=== PATIENT | female | born 2000 | race Hispanic/Latino ===

== ENCOUNTER 2022-01-28 10:11 | Emergency (ER) | payer SELFPAY ==
[~2022-01-28] VITALS: Ht 167.6 cm; Wt 90.0 kg
[2022-01-28 10:26] VITALS: BP 123/77
[2022-01-28 10:30] VITALS: BP 115/74
[2022-01-28 11:01] LABS: HEMATOCRIT 38.3 % (37.0-47.0); HEMOGLOBIN 12.2 g/dl (12.0-16.0); IMMATURE GRANULOCYTES 0.1 % (0.0-5.0); MEAN CELL VOLUME 81.8 fL CALC (80.0-100.0); MEAN CORPUSCULAR HGB 26.1 pG CALC (26.0-32.0); MEAN CORPUSCULAR HGB CONC 31.9 g/dL CAL (32.0-36.0); NEUT# 7.04 thou/uL (2.00-7.15); RED BLOOD COUNT 4.68 mill/uL (4.20-5.60); RED CELL DISTRI WIDTH 14.3 % (11.5-15.5)
[2022-01-28 11:02] LABS: URINE BILIRUBIN - DIPSTICK NEGATIVE (NEGATIVE); URINE BLOOD DIPSTICK NEGATIVE (NEGATIVE); URINE KETONE TRACE mg/dL (NEGATIVE); URINE PROTEIN - DIPSTICK TRACE mg/dL (NEG-TRACE); URINE SPECIFIC GRAVITY 1.025; URINE UROBILINOGEN - DIPSTICK 0.2 E.U./dL (0.2)
[2022-01-28 11:04] LABS: URINE LEUK ESTERASE SMALL (NEGATIVE); URINE NITRITE - DIPSTICK NEGATIVE (Negative)
[2022-01-28 11:05] LABS: URINE COLOR DK. YELLOW; URINE GLUCOSE - DIPSTICK NEGATIVE (NEGATIVE)
[2022-01-28 11:06] LABS: URINE EPITHELIAL CELLS FEW EPI/hpf (0-FEW)
[2022-01-28 11:15] LABS: ALBUMIN 4.1 g/dL (3.2-5.0); ALKALINE PHOSPHATASE 92 u/l (38-126); ANION GAP 10 (6-22 (CALC)); BILIRUBIN, TOTAL 0.6 mg/dL (0.0-1.4); BUN 9 mg/dL (7-17); BUN/CREATININE RATIO 16 (12-20 (CALC)); CARBON DIOXIDE 25 mmol/l (22-30); CHLORIDE 105 mmol/l (95-108); CREATININE 0.6 mg/dL (0.5-1.0); GFR FOR AFR.AMER. > 60 ML/MIN (>=60 (CALC)); GFR OTHER RACES > 60 ML/MIN (>=60 (CALC)); LIPASE 42 u/l (23-300); POTASSIUM 3.9 mmol/l (3.5-5.1); SGOT/AST 21 u/l (14-36); SODIUM 137 mmol/l (137-146); TOTAL PROTEIN 7.8 g/dL (6.3-8.2)
[2022-01-28] MEDS ORDERED: CEPHALEXIN500 MG PO (12:20)
[2022-01-28] MEDS ORDERED: ZOFRAN4 MG/TAB PO (12:20)
[2022-01-28 12:47] VITALS: BP 104/71
[2022-01-28 13:00] VITALS: BP 108/61
[2022-01-28 13:15] VITALS: BP 101/63
[2022-01-28 13:30] VITALS: BP 101/52
== END 2022-01-28 12:32 | disposition home or self-care (01) | DRG 832 ==
LOC: ED 10:11
PROVIDERS: Family Medicine
DX: O23.41 Unspecified infection of urinary tract in pregnancy, first trimester (principal); N39.0 Urinary tract infection, site not specified; Z3A.09 9 weeks gestation of pregnancy

== ENCOUNTER 2022-02-10 10:43 | Emergency (ER) | payer SELFPAY ==
[2022-02-10] VITALS (9 sets, daily range): BP systolic 76–117; BP diastolic 42–71
[~2022-02-10] VITALS: Ht 167.6 cm; Wt 113.6 kg
[~2022-02-10 10:43] MED LIST: CEPHALEXIN500 MG PO; ZOFRAN4 MG/TAB PO
[2022-02-10 11:34] LABS: URINE BILIRUBIN - DIPSTICK NEGATIVE (NEGATIVE); URINE BLOOD DIPSTICK NEGATIVE (NEGATIVE); URINE COLOR YELLOW; URINE GLUCOSE - DIPSTICK NEGATIVE (NEGATIVE); URINE KETONE TRACE mg/dL (NEGATIVE); URINE LEUK ESTERASE NEGATIVE (NEGATIVE); URINE PH 6.5 (4.5-8.0); URINE PROTEIN - DIPSTICK NEGATIVE (NEG-TRACE); URINE SPECIFIC GRAVITY 1.025
[2022-02-10 11:34] LABS: HEMATOCRIT 36.2 % (37.0-47.0); HEMOGLOBIN 11.5 g/dl (12.0-16.0); IMMATURE GRANULOCYTES 0.1 % (0.0-5.0); MEAN CELL VOLUME 82.8 fL CALC (80.0-100.0); MEAN CORPUSCULAR HGB 26.3 pG CALC (26.0-32.0); MEAN CORPUSCULAR HGB CONC 31.8 g/dL CAL (32.0-36.0); NEUT# 5.77 thou/uL (2.00-7.15); RED BLOOD COUNT 4.37 mill/uL (4.20-5.60); RED CELL DISTRI WIDTH 14.7 % (11.5-15.5)
[2022-02-10 11:38] LABS: URINE NITRITE - DIPSTICK NEGATIVE (Negative)
[2022-02-10 12:27] LABS: ALBUMIN 3.8 g/dL (3.2-5.0); ALKALINE PHOSPHATASE 82 u/l (38-126); ANION GAP 10 (6-22 (CALC)); BUN 9 mg/dL (7-17); BUN/CREATININE RATIO 13 (12-20 (CALC)); CARBON DIOXIDE 23 mmol/l (22-30); CHLORIDE 107 mmol/l (95-108); CREATININE 0.7 mg/dL (0.5-1.0); GFR FOR AFR.AMER. > 60 ML/MIN (>=60 (CALC)); GFR OTHER RACES > 60 ML/MIN (>=60 (CALC)); POTASSIUM 3.8 mmol/l (3.5-5.1); SGOT/AST 20 u/l (14-36); SODIUM 136 mmol/l (137-146); TOTAL PROTEIN 7.1 g/dL (6.3-8.2)
[2022-02-10 12:50] LABS: BILIRUBIN, TOTAL 0.3 mg/dL (0.0-1.4)
[2022-02-10 13:09] LABS: BETA-HCG, QUANT(RESULT NUMBER) 62727 mIU/mL
[2022-02-10] MEDS ORDERED: PROMETHAZINE HY25 M1 PO (13:33)
== END 2022-02-10 13:39 | disposition left against medical advice (07) | DRG 833 ==
LOC: ED 10:43
PROVIDERS: Family Medicine
DX: O46.91 Antepartum hemorrhage, unspecified, first trimester (principal); Z3A.10 10 weeks gestation of pregnancy

== ENCOUNTER 2022-12-18 23:41 | Emergency (ER) | payer SELFPAY ==
[~2022-12-18] VITALS: Ht 167.6 cm; Wt 102.0 kg
[~2022-12-18 23:41] MED LIST changes: +PROMETHAZINE HY25 M1 PO
[2022-12-18 23:52] VITALS: BP 107/81
[2022-12-19 00:01] VITALS: BP 98/66
[2022-12-19 00:16] VITALS: BP 104/65
[2022-12-19 00:16] LABS: BASO% 0.2 % (0-3); EOS% 1.3 % (0-8); IMMATURE GRANULOCYTES 0.1 % (0.0-5.0); LYMPH% 39.3 % (15-41); MEAN CELL VOLUME 78.2 fL CALC (80.0-100.0); MEAN CORPUSCULAR HGB 23.7 pG CALC (26.0-32.0); MEAN CORPUSCULAR HGB CONC 30.3 g/dL CAL (32.0-36.0); MONO% 4.7 % (2-13); NEUT# 4.66 thou/uL (2.00-7.15); NEUT% 54.4 % (42-76); RED BLOOD COUNT 4.22 mill/uL (4.20-5.60); RED CELL DISTRI WIDTH 16.8 % (11.5-15.5)
[2022-12-19 00:30] VITALS: BP 95/61
[2022-12-19 00:31] LABS: ALBUMIN 4.1 g/dL (3.2-5.0); BILIRUBIN, TOTAL 0.3 mg/dL (0.02-1.3); BUN 22 mg/dL (7-17); BUN/CREATININE RATIO 22 (12-20 (CALC)); CHLORIDE 106 mmol/l (95-108); GFR FOR AFR.AMER. > 60 ML/MIN (>=60 (CALC)); GFR OTHER RACES > 60 ML/MIN (>=60 (CALC)); POTASSIUM 3.8 mmol/l (3.5-5.1); SGOT/AST 29 u/l (14-36); SODIUM 141 mmol/l (137-146); TOTAL PROTEIN 7.5 g/dL (6.3-8.2)
[2022-12-19 00:38] LABS: ANION GAP 11 (6-22 (CALC)); CARBON DIOXIDE 28 mmol/l (22-30)
[2022-12-19 00:39] LABS: ALKALINE PHOSPHATASE 130 u/l (38-126)
[2022-12-19 00:57] LABS: ACT PARTIAL THROMBO TIME 26.1 SECONDS (20.0-32.5); PROTHROMBIN TIME 10.2 SECONDS (9.0-12.5)
[2022-12-19 01:03] LABS: D-DIMER 0.56 mg/L (0.19-0.60)
[2022-12-19] MEDS ORDERED: INDOMETHACIN75 MG PO (01:15)
[2022-12-19 02:09] VITALS: BP 104/65
== END 2022-12-19 02:20 | disposition home or self-care (01) | DRG 313 ==
LOC: ED 23:41
PROVIDERS: Family Medicine
DX: R07.89 Other chest pain (principal)

== ENCOUNTER 2023-10-07 22:54 | Emergency (ER) | payer SELFPAY ==
[~2023-10-07] VITALS: Ht 167.6 cm; Wt 120.0 kg
[~2023-10-07 22:54] MED LIST changes: +INDOMETHACIN75 MG PO
[2023-10-07 23:32] VITALS: BP 105/61
[2023-10-07] MEDS ORDERED: METOCLOPRAMIDE HCL 10 MG/2 ML SDV IV ONE (23:40)
[2023-10-07] MEDS ORDERED: BUTALBITAL-APAP-CAFFEINE 50-325-40 TAB PO ONE (23:40)
[2023-10-07] MEDS ORDERED: DEXAMETHASONE SODIUM PHOSPHATE PF 10 MG/ML SDV IV ONE (23:40)
[2023-10-07] MEDS ORDERED: KETOROLAC TROMETHAMINE 30 MG/ML SDV IV ONE (23:40)
[2023-10-08 01:20] LABS: BASO% 0.2 % (0-3); EOS% 0.9 % (0-8); HEMATOCRIT 29.9 % (37.0-47.0); IMMATURE GRANULOCYTES 0.1 % (0.0-5.0); LYMPH% 33.3 % (15-41); MEAN CELL VOLUME 74.8 fL CALC (80.0-100.0); MEAN CORPUSCULAR HGB 22.5 pG CALC (26.0-32.0); MEAN CORPUSCULAR HGB CONC 30.1 g/dL CAL (32.0-36.0); MONO% 5.8 % (2-13); NEUT# 5.98 thou/uL (2.00-7.15); NEUT% 59.7 % (42-76); RED CELL DISTRI WIDTH 17.7 % (11.5-15.5)
[2023-10-08 01:50] LABS: ALBUMIN 3.9 g/dL (3.2-5.0); ALKALINE PHOSPHATASE 132 u/l (38-126); ANION GAP 9 (6-22 (CALC)); BILIRUBIN, TOTAL 0.3 mg/dL (0.02-1.3); BUN 15 mg/dL (7-17); BUN/CREATININE RATIO 25 (12-20 (CALC)); CARBON DIOXIDE 26 mmol/l (22-30); CHLORIDE 109 mmol/l (95-108); CREATININE 0.6 mg/dL (0.5-1.0); GFR FOR AFR.AMER. > 60 ML/MIN (>=60 (CALC)); GFR OTHER RACES > 60 ML/MIN (>=60 (CALC)); POTASSIUM 3.9 mmol/l (3.5-5.1); SGOT/AST 29 u/l (14-36); SODIUM 141 mmol/l (137-146); TOTAL PROTEIN 7.2 g/dL (6.3-8.2)
[2023-10-08 02:48] VITALS: BP 114/65
[2023-10-08 03:01] VITALS: BP 119/76
[2023-10-08] MEDS ORDERED: FIORICET 50-3001 CAP PO (03:06)
[2023-10-08 03:11] VITALS: BP 119/76
== END 2023-10-08 03:30 | disposition home or self-care (01) | DRG 103 ==
LOC: ED 22:54
PROVIDERS: Internal Medicine
DX: R51.9 Headache, unspecified (principal); D64.9 Anemia, unspecified
CPT/HCPCS: J1100

== ENCOUNTER 2024-04-11 13:37 | Emergency (ER) | payer SELFPAY ==
[~2024-04-11] VITALS: Ht 167.6 cm; Wt 136.0 kg
[~2024-04-11 13:37] MED LIST changes: +FIORICET 50-3001 CAP PO
[2024-04-11 14:37] LABS: URINE BLOOD DIPSTICK Large (NEGATIVE); URINE CLARITY Cloudy; URINE GLUCOSE - DIPSTICK Negative (NEGATIVE); URINE KETONE 15 mg/dL (NEGATIVE); URINE LEUK ESTERASE Trace (Negative); URINE NITRITE - DIPSTICK Negative (Negative); URINE PH 5.5 (4.5-8.0); URINE PROTEIN - DIPSTICK >=300 mg/dL (NEG-TRACE); URINE SPECIFIC GRAVITY >=1.030
[2024-04-11 14:40] LABS: URINE COLOR Amber
[2024-04-11 14:41] LABS: URINE RBC >100 RBC/hpf (0-5)
== END 2024-04-11 16:48 | disposition left against medical advice (07) | DRG 951 ==
LOC: ED 13:37 → LWOBS 16:46 → ED 16:46
PROVIDERS: Family Medicine
DX: Z53.21 Procedure and treatment not carried out due to patient leaving prior to being seen by health care provider (principal)